=== PATIENT | female | born 1990 | race African-American/Black ===

== ENCOUNTER 2016-11-16 07:21 | Emergency (ER) | payer MEDICAID ==
[~2016-11-16] VITALS: Ht 172.7 cm; Wt 66.0 kg
[~2016-11-16 07:21] MED LIST: BENA25TA5 PO; PROC10TA4 PO
[2016-11-16 07:25] VITALS: BP 144/97; PULSE 64; RESP 17; TEMP 98.7; O2SAT 98
[2016-11-16] MEDS ORDERED: PERI0.126 SWISH-SPIT (07:39)
[2016-11-16] MEDS ORDERED: PENI500T PO (07:39)
[2016-11-16] MEDS ORDERED: ULTR50TA5 PO (07:39)
[2016-11-16] MEDS ORDERED: IBUP-232 PO (07:39)
--- NOTE | 2016-11-16 07:39 | PD ---
HPI Chief Complaint: Oral / Dental Pain or Problem Time Seen by Provider: 07:36 Travel History International Travel<30 days: No Contact w/Intl Traveler<30days: No Traveled to known affect area: No History of Present Illness HPI 26-year-old female presents to the emergency department for evaluation of left mandibular tooth pain with associated facial swelling. Patient states she has had a bad tooth for an unknown amount time yesterday broke off more and has become more painful over the last 24 hours. Denies fever or chills. Denies trauma. States that she has an appointment with dentist later on today. She has no other symptoms to report this time. PFSH Past Medical History Medical History: Denies Significant Hx Diminished Hearing: No Hypertension: Yes (NO MEDS ) Immunizations Current: No ?: Not LMP: 10/2016 : 3 Para: 3 Miscarriage: 0 : 0 Social History Alcohol Use: Yes (occ) Tobacco Use: Yes (2-3 cigarettes per day throughout ) Substance Use: No Allergies-Medications (Allergen,Severity, Reaction): Coded Allergies: No Known Allergies (Verified , 11/16/16) Reported Meds & Prescriptions Reported Meds & Active Scripts Active Ultram (Tramadol HCl) 50 Mg Tab 50 Mg PO Q8H PRN Ibuprofen 600 Mg Tab 600 Mg PO Q8HR PRN Peridex Liq (Chlorhexidine Gluconate (Mouth) Liq) 0.12% Soln 15 Ml SWISH-SPIT BID 14 Days Penicillin V Potassium 500 Mg Tab 500 Mg PO Q6H 10 Days Benadryl (Diphenhydramine HCl) 25 Mg Tab 25 Mg PO Q6H PRN Compazine (Prochlorperazine Maleate) 10 Mg Tab 10 Mg PO Q6HR PRN Take 1 tablet by mouth every 6 hours as needed for nausea and/or vomiting (generic for compazine) Review of Systems Except as stated in HPI: all other systems reviewed are Neg Physical Exam Narrative GENERAL: Well-nourished, well-developed female patient known acute distress SKIN: Focused skin assessment warm/dry. HEAD: Normocephalic. Slight edema along the left mandible EYES: No scleral icterus. No injection or drainage. ENT: Mucosa pink and moist. No erythema or exudates. Submental spaces soft. No uvular edema. No uvular, palatal, or tonsillar deviation. Airway patent. Nasal turbinates appear normal without nasal blood, purulent drainage or septal hematoma. DENTAL: Generalized poor dentition. The left mandibular first molar is decayed to the gumline with gingival erythema and edema. No appreciable abscess. No malocclusion. NECK: Supple, trachea midline. No JVD or lymphadenopathy. CARDIOVASCULAR: Regular rate and rhythm without murmurs, gallops, or rubs. RESPIRATORY: Breath sounds equal bilaterally. No accessory muscle use. GASTROINTESTINAL: Abdomen soft, non-tender, nondistended. MUSCULOSKELETAL: No cyanosis, or edema. BACK: Nontender without obvious deformity. No CVA tenderness. Data Data Last Documented VS Vital Signs Date Time Temp Pulse Resp B/P (MAP) Pulse Ox O2 Delivery O2 Flow Rate FiO2 11/16/16 07:25 98.7 64 17 144/97 (113) 98 Orders Orders Ibuprofen (Motrin) (11/16/16 07:45) Acetamin-Hydrocod 325-5 Mg ([place] 5-325 (11/16/16 07:45) MDM Medical Decision Making Medical Screen Exam Complete: Yes Emergency Medical Condition: Yes Medical Record Reviewed: Yes Differential Diagnosis Dental caries versus gingivitis versus pulpitis versus periodontal disease Narrative Course 26-year-old female presents to emergency for evaluation of dental pain and facial swelling. Patient has significantly decayed left mandibular first molar. She is treated for pain. She'll be started on oral antibiotics and encouraged to keep her dental appointment. She is counseled on care and agrees to return immediately with any acute worsening symptoms. Diagnosis Primary Impression: Dentalgia Additional Impressions: Dental caries Gingivitis Referrals: Dentist Primary Care Physician Patient Instructions: Dental Caries (ED), General Instructions Additional Instructions: It is important that you seek dental evaluation Keep your appointment for today Return immediately to the emergency department with any acute worsening of symptoms Med/Other Pt SpecificInfo: Prescription(s) given Scripts Tramadol (Ultram) 50 Mg Tab 50 MG PO Q8H Y for PAIN GREATER THAN 6, #20 TAB 0 Refills Prov: Lizzette Gorman 11/16/16 Ibuprofen (Ibuprofen) 600 Mg Tab 600 MG PO Q8HR Y for PAIN, #30 TAB 0 Refills Prov: Lizzette Gorman 11/16/16 Chlorhexidine Gluconate (Mouth) Liq (Peridex Liq) 0.12% Soln 15 ML SWISH-SPIT BID for 14 Days, #420 ML 0 Refills Prov: Lizzette Gorman 11/16/16 Penicillin V Potassium (Penicillin V Potassium) 500 Mg Tab 500 MG PO Q6H for Infection for 10 Days, #40 TAB 0 Refills Prov: Lizzette Gorman 11/16/16 Disposition: 01 DISCHARGE HOME Condition: Stable Lizzette Gorman Nov 16, 2016 07:39
[2016-11-16] MEDS ORDERED: ACETAMINOPHEN/HYDROcodone 325 MG/5 MG TAB PO ONE (07:45)
[2016-11-16] MEDS ORDERED: IBUPROFEN 800 MG TAB PO ONE (07:45)
== END 2016-11-16 07:54 | disposition home or self-care (01) ==
LOC: NEPK 07:21
DX: K02.9 Dental caries, unspecified (principal); K05.10 Chronic gingivitis, plaque induced; F17.210 Nicotine dependence, cigarettes, uncomplicated
CPT/HCPCS: 99284